=== PATIENT | female | born 1950 | race Caucasian/White ===

== ENCOUNTER → 2018-02-20 | Outpatient (CLI) | payer MEDICARE ==
[~2018-02-20] MED LIST: Antivert25 MG PO; B-121000 MC2 PO; DILT240ER PO; DULO60 PO; Diflucan100 MG PO; Dilt-Xr120 MG PO; LEVSOD88 PO; Metoprolol Succ25 MG PO; Pantoprazole So40 MG PO; RABE20 PO; SIMV20 PO; Zithromax250 MG PO; Zofran Odt4 MG SL
== END ==
LOC: LAB SHORT 15:17 → LAB 15:17
DX: N39.0 Urinary tract infection, site not specified (principal)
CPT/HCPCS: 87077; 87086; 87186

== ENCOUNTER → 2018-08-18 | Outpatient (CLI) | payer MEDICARE ==
[2018-08-20 15:07] LABS: HPV 16 Negative (Negative); HPV 18 Negative (Negative); HPV OTHER HR TYPES Negative (Negative)
== END ==
LOC: LAB 17:17 → LAB SHORT 17:17
PROVIDERS: Nurse Practitioner Women's Health
DX: Z12.72 Encounter for screening for malignant neoplasm of vagina (principal); Z91.89 Other specified personal risk factors, not elsewhere classified
CPT/HCPCS: 87624; G0123

== ENCOUNTER → 2018-10-31 | Outpatient (CLI) | payer MEDICARE ==
[2018-11-03 06:14] LABS: Stool Occult Bld Immuno 1 Negative (NEGATIVE); Stool Occult Bld Immuno 2 Negative (NEGATIVE)
== END | disposition home or self-care (01) ==
LOC: LAB SHORT 20:50 → LAB EV 20:50
PROVIDERS: Internal Medicine Gastroenterology
DX: Z12.11 Encounter for screening for malignant neoplasm of colon (principal)
CPT/HCPCS: G0328

== ENCOUNTER 2022-11-14 17:40 | Emergency (ER) | payer OTHER ==
[~2022-11-14] VITALS: Ht 160 cm; Wt 73.9 kg
[~2022-11-14 17:40] MED LIST changes: +ASPI81CH; +ASPI81CH PO; +Percocet 5-3251 EACH PO; +TOPROL XL25 MG PO; +Vitamin D1000 UNI1 PO; +XARELTO20 MG PO; +ZYRTEC10 M2 PO
[2022-11-14 18:56] LABS: BASOPHILS ABSOLUTE AUTO 0.04 K/mm3 (0.00-0.23); BASOPHILS PERCENT AUTO 1 % (0-2); EOSINOPHILS ABSOLUTE AUTO 0.09 K/mm3 (0.00-0.68); EOSINOPHILS PERCENT AUTO 1 % (0-6); Hematocrit 32.4 % (33.0-51.0); Hemoglobin 10.6 g/dL (11.5-16.0); IMMATURE GRAN ABSOLUTE AUTO 0.06 K/mm3 (0.00-0.10); IMMATURE GRAN PERCENT AUTO 1 % (0-1); LYMPHOCYTES ABSOLUTE AUTO 1.16 K/mm3 (0.84-5.20); LYMPHOCYTES PERCENT AUTO 13 % (21-46); MONOCYTES ABSOLUTE AUTO 0.67 K/mm3 (0.16-1.47); MONOCYTES PERCENT AUTO 8 % (4-13); Mean Corpuscular HGB 28.8 pg (26.0-34.0); Mean Corpuscular HGB Conc 32.7 g/dL (31.5-36.5); Mean Corpuscular Volume 88 fL (80-100); Mean Platelet Volume 9.3 fL (9.1-12.4); NEUTROPHILS ABSOLUTE AUTO 6.86 K/mm3 (1.96-9.15); NEUTROPHILS PERCENT AUTO 77 % (41-73); Platelet Count 363 K/mm3 (150-400); RDW Coefficient Variation 13.5 % (11.7-14.2); RDW Standard Deviation 43.7 fL (35.1-46.3); Red Blood Cell Count 3.68 M/mm3 (3.80-5.20); White Blood Cell Count 8.88 K/mm3 (4.00-11.30)
[2022-11-14 19:30] LABS: Albumin, Blood 3.2 g/dL (3.4-5.0); Albumin/Globulin Ratio 0.7 (0.8-1.8); Bilirubin, Total 0.5 mg/dL (0.1-1.0); Bun/Creatinine Ratio 15.3 (12.0-20.0); Calcium, Blood 8.9 mg/dL (8.5-10.1); Creatinine, Blood 0.59 mg/dL (0.40-1.00); Globulin, Blood 4.6 g/dL (2.2-4.0); Potassium, Blood 3.8 mmol/L (3.5-5.5); Total Protein, Blood 7.8 g/dL (6.4-8.2)
== END 2022-11-14 20:59 | disposition home or self-care (01) ==
LOC: ER 17:40
PROVIDERS: Physician Assistant
DX: G45.9 Transient cerebral ischemic attack, unspecified (principal)
CPT/HCPCS: 36415; 70450; 80053; 85025; 99285-25; Q9967

== ENCOUNTER → 2023-05-18 | Outpatient (CLI) | payer OTHER ==
[~2023-05-18] MED LIST changes: +ATOR80 PO; +CATAPRES0.1 MG PO; +CLOP75 PO; +FAMO20 PO; +NITR100CA PO; +OMEP20ER PO; +SERT50 PO
[2023-05-18 11:36] LABS: Appearance, Urine Cloudy (Clear); Bilirubin, Urine Neg (Neg); Blood, Urine Neg (Neg); Color, Urine Yellow (P-Yellow); Glucose Qualitative, Urine Neg (Neg); Ketones, Urine Neg (Neg); Leukocyte Esterase, Urine 2+ (Neg); Nitrite, Urine Pos (Neg); Protein, Urine 1+ (Neg); Urobilinogen, Urine NORM (Normal)
[2023-05-18 12:32] LABS: Bacteria Many /hpf; Red Blood Cells, Urine 0-2 /hpf (0-2); Squamous Epithelial Cells Few /hpf (Few); White Blood Cells, Urine 25-50 /hpf (0-5)
== END | disposition home or self-care (01) ==
LOC: LAB SHORT 08:30 → LAB 08:30
PROVIDERS: Family Medicine
DX: N39.0 Urinary tract infection, site not specified (principal); R30.0 Dysuria
CPT/HCPCS: 81001; 87077; 87086; 87186

== ENCOUNTER 2023-05-21 10:15 | Observation (INO) | payer OTHER ==
[~2023-05-21] VITALS: Ht 160 cm; Wt 64.9 kg
[~2023-05-21 10:15] MED LIST changes: -ATOR80 PO; -CATAPRES0.1 MG PO; -CLOP75 PO; -FAMO20 PO; -NITR100CA PO; -OMEP20ER PO; -SERT50 PO
[2023-05-21 10:38] LABS: BASOPHILS ABSOLUTE AUTO 0.06 K/mm3 (0.00-0.23); BASOPHILS PERCENT AUTO 1 % (0-2); EOSINOPHILS ABSOLUTE AUTO 0.14 K/mm3 (0.00-0.68); EOSINOPHILS PERCENT AUTO 2 % (0-6); Hematocrit 24.7 % (33.0-51.0); Hemoglobin 7.4 g/dL (11.5-16.0); IMMATURE GRAN ABSOLUTE AUTO 0.04 K/mm3 (0.00-0.10); IMMATURE GRAN PERCENT AUTO 1 % (0-1); LYMPHOCYTES ABSOLUTE AUTO 1.68 K/mm3 (0.84-5.20); LYMPHOCYTES PERCENT AUTO 21 % (21-46); MONOCYTES ABSOLUTE AUTO 0.57 K/mm3 (0.16-1.47); MONOCYTES PERCENT AUTO 7 % (4-13); Mean Corpuscular HGB 24.5 pg (26.0-34.0); Mean Corpuscular Volume 82 fL (80-100); Mean Platelet Volume 9.5 fL (9.1-12.4); NEUTROPHILS ABSOLUTE AUTO 5.38 K/mm3 (1.96-9.15); NEUTROPHILS PERCENT AUTO 68 % (41-73); Platelet Count 453 K/mm3 (150-400); RDW Coefficient Variation 15.2 % (11.7-14.2); RDW Standard Deviation 44.9 fL (35.1-46.3); Red Blood Cell Count 3.02 M/mm3 (3.80-5.20); White Blood Cell Count 7.87 K/mm3 (4.00-11.30)
[2023-05-21 10:53] LABS: Albumin, Blood 3.2 g/dL (3.4-5.0); Albumin/Globulin Ratio 0.8 (0.8-1.8); Bilirubin, Total 0.2 mg/dL (0.1-1.0); Bun/Creatinine Ratio 15.6 (12.0-20.0); Calcium, Blood 8.4 mg/dL (8.5-10.1); Creatinine, Blood 0.58 mg/dL (0.40-1.00); Globulin, Blood 3.8 g/dL (2.2-4.0); Potassium, Blood 3.8 mmol/L (3.5-5.5)
--- NOTE | 2023-05-21 18:00 | NUR ---
CALLED HOSPITALIST REGARDING PT'S NPO STATUS. HOSPITALIST REQUESTED RN COMPLETE A BEDSIDE SWALLOW EVALUATION AND, IF NO SIGNS OF ASPIRATION, ORDER PT A REGULAR DIET (PER PT'S SELF-REPORT OF REGULAR DIET, THIN LIQUIDS, AND PILLS WHOLE WITH WATER AT BASELINE). AUSCULTATED UPPER AIRWAY PRIOR TO EVALUATION AND ELEVATED HOB TO APPROX 90 DEGREES. GAVE PT SIP OF WATER FROM CUP, WATER FROM STRAW, APPLESAUCE, AND JAYLA CRACKER. PT SWALLOWED WITHOUT DIFFICULTY, NO COUGH NOTED, NO FOOD RESIDUE LEFT IN PT'S MOUTH OR CHEEKS. AUSCULTATED UPPER AIRWAY AGAIN WHICH REMAINED CLEAR. ORDERED REGULAR DIET FOR PT.
[2023-05-21] MEDS ORDERED: NITR100CA PO (19:37)
[2023-05-21] MEDS ORDERED: FAMO20 PO (19:38)
[2023-05-21] MEDS ORDERED: OMEP20ER PO (19:38)
[2023-05-21 19:39] VITALS: BP 152/52
[2023-05-21] MEDS ORDERED: SERT50 PO (19:39)
[2023-05-21] MEDS ORDERED: ATOR80 PO (19:40)
[2023-05-21] MEDS ORDERED: CATAPRES0.1 MG PO (19:42)
--- NOTE | 2023-05-21 20:24 | NUR ---
SHIFT SUMMARY: ALAYNA IS A&OX4. VSS, NO ACUTE EVENTS SINCE ADMISSION TO MEDICAL FLOOR THIS SHIFT. SHE IS A ONE-PERSON ASSIST TO THE [facility] WITH GAIT BELT AND FWW. ATTENDS IN PLACE FOR URINARY INCONTINENCE, HOWEVER PT DOES CALL WHEN NEEDING TO GET UP AND USE THE COMMODE. SHE IS TOLERATING A REGULAR DIET WELL, DENIES PAIN EXCEPT WHEN BENDING HER RIGHT ARM D/T THE IV IN THE R AC WHICH IS PATENT. SHE IS LYING IN BED WITH THE CALL LIGHT IN REACH. REPORT WAS GIVEN TO FILER AND SANDER RN.
[2023-05-22 04:29] VITALS: BP 156/53
--- NOTE | 2023-05-22 04:48 | NUR ---
Rn summary: Patient is alert and oriented. She had a MRI at the beginning of shift. No new findings. Patient is almost back to her baseline. Continues with left facial droop, left arm with minimal movement. Did sleep all night and was incontinent of urine. Attends in place. Patient is able to take meds and fluids without difficulty. Left wrist is painful if mechanically moved by nursing but otherwise denies discomfort. Call light in reach, no needs at this time.
[2023-05-22 05:36] LABS: Calcium, Blood 8.2 mg/dL (8.5-10.1); Creatinine, Blood 0.47 mg/dL (0.40-1.00); Potassium, Blood 4.1 mmol/L (3.5-5.5)
[2023-05-22 05:39] LABS: BASOPHILS ABSOLUTE AUTO 0.05 K/mm3 (0.00-0.23); BASOPHILS PERCENT AUTO 1 % (0-2); EOSINOPHILS ABSOLUTE AUTO 0.13 K/mm3 (0.00-0.68); EOSINOPHILS PERCENT AUTO 2 % (0-6); Hematocrit 23.5 % (33.0-51.0); IMMATURE GRAN ABSOLUTE AUTO 0.07 K/mm3 (0.00-0.10); IMMATURE GRAN PERCENT AUTO 1 % (0-1); LYMPHOCYTES ABSOLUTE AUTO 1.53 K/mm3 (0.84-5.20); LYMPHOCYTES PERCENT AUTO 18 % (21-46); MONOCYTES ABSOLUTE AUTO 0.59 K/mm3 (0.16-1.47); MONOCYTES PERCENT AUTO 7 % (4-13); Mean Corpuscular HGB 24.5 pg (26.0-34.0); Mean Corpuscular HGB Conc 29.8 g/dL (31.5-36.5); Mean Corpuscular Volume 82 fL (80-100); Mean Platelet Volume 9.2 fL (9.1-12.4); NEUTROPHILS ABSOLUTE AUTO 6.03 K/mm3 (1.96-9.15); NEUTROPHILS PERCENT AUTO 72 % (41-73); Platelet Count 411 K/mm3 (150-400); RDW Coefficient Variation 15.2 % (11.7-14.2); RDW Standard Deviation 45.5 fL (35.1-46.3); Red Blood Cell Count 2.86 M/mm3 (3.80-5.20)
[2023-05-22 07:40] VITALS: BP 149/51
[2023-05-22] MEDS ORDERED: CLOP75 PO (11:20)
[2023-05-22] MEDS ORDERED: ASPI81CH PO (11:20)
--- NOTE | 2023-05-22 11:50 | NUR ---
SHIFT SUMMARY AND DISCHARGE PATIENT ALERT AND INTERACTIVE. L SIDED WEAKNESS FROM PREVIOUS CVA. PATIENT EAGER TO GO HOME. PATIENT ABLE TO STAND AND TRANSFER WITH ONE PERSON ASSIST. DISCHRGE INSTRUCTIONS REVIEWED WITH PATIENT AND . BELONGINGS GATHERED BY . IV DCD. PATIENT ASSISTED WITH DRESSING AND TAKEN OUT VIA WHEELCHAIR.
== END 2023-05-22 12:01 | disposition home or self-care (01) ==
LOC: ER 10:15 → MEDS 10:16 → ENPENDDIS 05-22 10:46 → MEDS 05-22 12:01
PROVIDERS: Physician Assistant; ADMIT Internal Medicine
DX: I65.23 Occlusion and stenosis of bilateral carotid arteries (principal); R47.01 Aphasia; Z66 Do not resuscitate; I10 Essential (primary) hypertension; E03.9 Hypothyroidism, unspecified; I48.91 Unspecified atrial fibrillation; K21.9 Gastro-esophageal reflux disease without esophagitis; Z88.0 Allergy status to penicillin; Z88.2 Allergy status to sulfonamides; Z88.6 Allergy status to analgesic agent; Z88.8 Allergy status to other drugs, medicaments and biological substances; Z79.890 Hormone replacement therapy; Z79.01 Long term (current) use of anticoagulants; Z79.899 Other long term (current) drug therapy
CPT/HCPCS: 36415; 70450; 70496; 70498; 70551; 80048; 80053; 82947; 85025; 93005; 93010; 96365; 96376; 99285-25; A9270; G0378; J2916; Q9967

== ENCOUNTER → 2023-06-16 | Outpatient (CLI) | payer OTHER ==
[~2023-06-16] MED LIST changes: +ATOR80 PO; +CATAPRES0.1 MG PO; +CLOP75 PO; +FAMO20 PO; +NITR100CA PO; +OMEP20ER PO; +SERT50 PO
== END ==
LOC: LAB SHORT 14:04 → LAB 14:04
DX: R30.0 Dysuria (principal)
CPT/HCPCS: 87077; 87086; 87186

== ENCOUNTER 2023-08-28 19:32 | Emergency (ER) | payer OTHER ==
[~2023-08-28] VITALS: Ht 160 cm; Wt 64.9 kg
[2023-08-28] MEDS ORDERED: IRON18 MG PO (19:56)
[2023-08-28] MEDS ORDERED: AMLO5 PO (19:57)
[2023-08-28] MEDS ORDERED: LOPE2C PO (19:58)
[2023-08-28] MEDS ORDERED: BISA10S PR (19:58)
[2023-08-28 21:15] VITALS: BP 169/51
== END 2023-08-28 21:38 | disposition home or self-care (01) ==
LOC: ER 19:32
DX: S09.90XA Unspecified injury of head, initial encounter (principal); I10 Essential (primary) hypertension; E78.00 Pure hypercholesterolemia, unspecified; K21.9 Gastro-esophageal reflux disease without esophagitis; E03.9 Hypothyroidism, unspecified; Z86.73 Personal history of transient ischemic attack (TIA), and cerebral infarction without residual deficits; Z79.01 Long term (current) use of anticoagulants; Z79.82 Long term (current) use of aspirin; Z79.02 Long term (current) use of antithrombotics/antiplatelets; Z79.899 Other long term (current) drug therapy; Z88.0 Allergy status to penicillin; Z88.2 Allergy status to sulfonamides; Z88.7 Allergy status to serum and vaccine; Z88.8 Allergy status to other drugs, medicaments and biological substances; Z91.011 Allergy to milk products; Z88.6 Allergy status to analgesic agent; W18.39XA Other fall on same level, initial encounter; Y93.89 Activity, other specified
CPT/HCPCS: 70450; 93005; 93010; 99284-25

== ENCOUNTER 2023-09-01 12:01 | Emergency (ER) | payer OTHER ==
[~2023-09-01] VITALS: Ht 160 cm; Wt 63.5 kg
[~2023-09-01 12:01] MED LIST changes: +AMLO5 PO; +BISA10S PR; +IRON18 MG PO; +LOPE2C PO
[2023-09-01 12:06] VITALS: BP 161/68
[2023-09-01] MEDS ORDERED: XARELTO20 M1 PO (12:46)
[2023-09-01] MEDS ORDERED: METOPROLOL SUCC25 MG PO (12:46)
[2023-09-01] MEDS ORDERED: HYDR1TAB94 PO (14:05)
== END 2023-09-01 14:12 | disposition home or self-care (01) ==
LOC: ER 12:01
DX: M25.552 Pain in left hip (principal); I10 Essential (primary) hypertension; E78.00 Pure hypercholesterolemia, unspecified; K21.9 Gastro-esophageal reflux disease without esophagitis; E03.9 Hypothyroidism, unspecified; Z88.0 Allergy status to penicillin; Z88.2 Allergy status to sulfonamides; Z88.6 Allergy status to analgesic agent; Z88.8 Allergy status to other drugs, medicaments and biological substances; Z79.890 Hormone replacement therapy; Z79.01 Long term (current) use of anticoagulants; Z79.899 Other long term (current) drug therapy; Z79.82 Long term (current) use of aspirin; Z91.81 History of falling
CPT/HCPCS: 72192; 73502; 99284-25; A9270

== ENCOUNTER → 2023-09-08 | Outpatient (CLI) | payer OTHER ==
[~2023-09-08] MED LIST changes: +HYDR1TAB94 PO; +METOPROLOL SUCC25 MG PO; +XARELTO20 M1 PO
[2023-09-08 14:34] LABS: Appearance, Urine Hazy (Clear); Bilirubin, Urine Neg (Neg); Blood, Urine 2+ (Neg); Color, Urine Yellow (P-Yellow); Glucose Qualitative, Urine Neg (Neg); Ketones, Urine Neg (Neg); Leukocyte Esterase, Urine 3+ (Neg); Nitrite, Urine Pos (Neg); Protein, Urine 1+ (Neg); Urobilinogen, Urine NORM (Normal); pH, Urine 6.5 (5.0-8.0)
[2023-09-08 14:53] LABS: White Blood Cells, Urine TNTC /hpf (0-5)
[2023-09-08 14:54] LABS: Amorphous Light (0-Heavy); Bacteria Many /hpf; Squamous Epithelial Cells Few /hpf (Few)
[2023-09-08 14:55] LABS: Transitional Epithelial Cells Rare /hpf (0-Rare)
== END | disposition home or self-care (01) ==
LOC: LAB 13:41 → LAB SHORT 13:41
PROVIDERS: Family Medicine
DX: N39.0 Urinary tract infection, site not specified (principal); R30.0 Dysuria
CPT/HCPCS: 81001; 87077; 87086; 87186

== ENCOUNTER → 2023-10-16 | Outpatient (CLI) | payer OTHER ==
[2023-10-16 15:37] LABS: Source, Urine Clean Catch
[2023-10-16 17:00] LABS: Bilirubin, Urine Neg (Neg); Blood, Urine 1+ (Neg); Glucose Qualitative, Urine Neg (Neg); Ketones, Urine Neg (Neg); Leukocyte Esterase, Urine Neg (Neg); Nitrite, Urine Pos (Neg); Protein, Urine 1+ (Neg); Specific Gravity, Urine 1.015 (1.003-1.022); Urobilinogen, Urine NORM (Normal)
[2023-10-16 17:14] LABS: Appearance, Urine Hazy (Clear); Color, Urine Pale Yellow (P-Yellow)
[2023-10-16 17:15] LABS: Bacteria Many /hpf; Squamous Epithelial Cells Few /hpf (Few)
[2023-10-16 17:16] LABS: Amorphous Light (0-Heavy); Transitional Epithelial Cells Rare /hpf (0-Rare)
== END | disposition home or self-care (01) ==
LOC: LAB 15:36 → LAB SHORT 15:36
PROVIDERS: Family Medicine
DX: N39.0 Urinary tract infection, site not specified (principal)
CPT/HCPCS: 81001; 87086

== ENCOUNTER → 2024-08-08 | Outpatient (CLI) | payer OTHER ==
[2024-08-08 12:33] LABS: Source, Urine Voided
[2024-08-08 14:44] LABS: Appearance, Urine Cloudy (Clear); Bilirubin, Urine Neg (Neg); Blood, Urine 1+ (Neg); Glucose Qualitative, Urine 3+ (Neg); Ketones, Urine Neg (Neg); Leukocyte Esterase, Urine 2+ (Neg); Nitrite, Urine Pos (Neg); Protein, Urine 2+ (Neg); Urobilinogen, Urine NORM (Normal)
[2024-08-08 14:56] LABS: Color, Urine Pale Yellow (P-Yellow)
[2024-08-08 14:57] LABS: Bacteria Many /hpf; Squamous Epithelial Cells Few /hpf (Few)
[2024-08-08 14:58] LABS: Amorphous Light (0-Heavy); White Blood Cells, Urine 25-50 /hpf (0-5)
== END | disposition home or self-care (01) ==
LOC: LAB 12:22 → LAB SHORT 12:22
PROVIDERS: Family Medicine
DX: N39.0 Urinary tract infection, site not specified (principal)
CPT/HCPCS: 81001; 87077; 87086; 87186

== ENCOUNTER → 2024-09-26 | Outpatient (CLI) | payer OTHER ==
[2024-09-26 18:13] LABS: Source, Urine Clean Catch
[2024-09-26 18:20] LABS: Appearance, Urine Cloudy (Clear); Bilirubin, Urine Neg (Neg); Blood, Urine 1+ (Neg); Glucose Qualitative, Urine 4+ (Neg); Ketones, Urine Neg (Neg); Leukocyte Esterase, Urine Neg (Neg); Nitrite, Urine Neg (Neg); Protein, Urine Neg (Neg); Urobilinogen, Urine NORM (Normal)
[2024-09-26 18:27] LABS: Color, Urine Pale Yellow (P-Yellow)
[2024-09-26 18:28] LABS: Red Blood Cells, Urine 0-2 /hpf (0-2); Yeast/Fungi Urine Mod /hpf
[2024-09-26 18:29] LABS: Bacteria Many /hpf; Squamous Epithelial Cells Rare /hpf (Few)
== END ==
LOC: LAB SHORT 18:10 → LAB 18:10
PROVIDERS: Internal Medicine
DX: N39.0 Urinary tract infection, site not specified (principal)
CPT/HCPCS: 81001; 87077; 87086; 87186

== ENCOUNTER → 2025-01-03 | Outpatient (CLI) | payer OTHER ==
[2025-01-03 14:22] LABS: Source, Urine Clean Catch
[2025-01-03 15:15] LABS: Appearance, Urine Hazy (Clear); Bilirubin, Urine Neg (Neg); Blood, Urine Neg (Neg); Glucose Qualitative, Urine 4+ (Neg); Ketones, Urine Neg (Neg); Leukocyte Esterase, Urine Neg (Neg); Nitrite, Urine Neg (Neg); Protein, Urine 1+ (Neg); Specific Gravity, Urine 1.015 (1.003-1.022); Urobilinogen, Urine NORM (Normal)
[2025-01-03 15:24] LABS: Color, Urine Pale Yellow (P-Yellow)
[2025-01-03 15:33] LABS: Amorphous Mod (0-Heavy); Bacteria Many /hpf; Squamous Epithelial Cells Few /hpf (Few)
== END | disposition home or self-care (01) ==
LOC: LAB 13:30 → LAB SHORT 13:30 → LAB FUT 12-28 10:55
PROVIDERS: Family Medicine
DX: N39.0 Urinary tract infection, site not specified (principal); R39.9 Unspecified symptoms and signs involving the genitourinary system
CPT/HCPCS: 81001; 87077; 87086; 87186